=== PATIENT | female | born 1960 | race Caucasian/White ===

== ENCOUNTER 2022-02-16 08:37 | Inpatient (IN) ==
[2022-02-16] MEDS ORDERED: Lidocaine -MPF 4% 5 ML AMPUL ONE (08:52)
[2022-02-16] MEDS ORDERED: Lidocaine -MPF 2% 2 ML VIAL ONE (08:52)
[2022-02-16] MEDS ORDERED: *HR* Propofol 200 MG/20 ML VIAL IVP ONE (08:52)
[2022-02-16] MEDS ORDERED: *HR* Rocuronium Bromide 50 MG/5 ML VIAL ONE ×2 (08:52→12:34)
[2022-02-16] MEDS ORDERED: Ondansetron 4 MG/2 ML VIAL ONE (08:52)
[2022-02-16] MEDS ORDERED: *HR* FentaNYL (PF) 100 MCG/2 ML VIAL ONE (08:53)
[2022-02-16] MEDS ORDERED: CeFAZolin Syr 2,000MG/20 ML 2,000 MG/20 ML SYRINGE IVPB ONE (08:54)
[2022-02-16] MEDS ORDERED: Ringers Solution, Lactated 1,000 ML IVC SCH (09:00)
[2022-02-16] MEDS ORDERED: *HR* Labetalol 20 MG/4 ML SYRINGE IVP PRN (09:10)
[2022-02-16] MEDS ORDERED: Promethazine 6.25 MG in Water for inj. (sterile) 20 ML IVPB PRN (09:10)
[2022-02-16] MEDS ORDERED: Ipratropium Neb 0.5 MG NEBULIZER IH PRN (09:10)
[2022-02-16] MEDS ORDERED: Famotidine 20 MG/2 ML VIAL IVP ONE (09:10)
[2022-02-16] MEDS ORDERED: *HR* OxyCODONE Immed Rel 5 MG TABLET PO PRN (09:10)
[2022-02-16] MEDS ORDERED: Ondansetron 4 MG/2 ML VIAL IVP PRN ×2 (09:10→17:04)
[2022-02-16] MEDS ORDERED: Albuterol 2.5 MG/3 ML NEBULIZER IH PRN (09:10)
[2022-02-16] MEDS ORDERED: *HR* HYDROmorphone PF 0.5 MG/0.5 ML SYRINGE IVP PRN (09:10)
[2022-02-16] MEDS ORDERED: Pregabalin 75 MG CAPSULE PO ONE (09:17)
[2022-02-16] MEDS ORDERED: tiZANidine 4 MG TABLET PO ONE (09:17)
[2022-02-16] MEDS ORDERED: Celecoxib 200 MG CAPSULE PO ONE (09:17)
[2022-02-16] MEDS ORDERED: Ketorolac 30 MG/ML VIAL IVP PRN (09:37)
[2022-02-16] MEDS ORDERED: Ipratropium/Albuterol Neb 3 ML IH ONE (09:39)
[2022-02-16] MEDS ORDERED: *HR* Midazolam HCl 2 MG/2 ML VIAL ONE (11:32)
[2022-02-16] MEDS ORDERED: EPHEDrine 50 MG/ML VIAL ONE (12:03)
[2022-02-16] MEDS ORDERED: *HR* HYDROMORPHONE 2 MG/ML VIAL ONE (12:24)
[2022-02-16] MEDS ORDERED: Sugammadex Sodium 200 MG/2 ML VIAL IV ONE (12:54)
[2022-02-16] MEDS ORDERED: Naloxone 0.4 MG/ML INJ IVP PRN (17:04)
[2022-02-16] MEDS: Gabapentin 300 MG CAPSULE PO SCH ×2 (17:12→20:45)
[2022-02-16] MEDS: Ipratropium/Albuterol Neb 3 ML IH SCH ×3 (17:18→23:51)
[2022-02-16] MEDS: 0.9 % Sodium Chloride 1,000 ML IVC SCH (17:28)
[2022-02-16] MEDS: Famotidine 20 MG TABLET PO SCH (20:45)
[2022-02-16] MEDS: Sennosides/Docusate Sodium TABLET PO SCH (20:45)
[2022-02-16] MEDS: *HR* HYDROcodone/Acet 5/325 mg TABLET PO PRN (20:46)
[2022-02-16] MEDS: *HR* Heparin 5,000 UNIT/ML VIAL SQ SCH (20:46)
[2022-02-16] MEDS: Celecoxib 200 MG CAPSULE PO SCH (20:46)
[2022-02-17] MEDS: Ipratropium/Albuterol Neb 3 ML IH SCH ×5 (03:49→20:26)
[2022-02-17] MEDS: *HR* Heparin 5,000 UNIT/ML VIAL SQ SCH ×3 (05:26→20:00)
[2022-02-17] MEDS: 0.9 % Sodium Chloride 1,000 ML IVC SCH (05:28)
[2022-02-17 06:08] LABS: Hematocrit 37.6 % (35.3-44.9); Hemoglobin 11.9 g/dL (11.5-15.4); Immature Platelets 1.7 % (1.1-6.1); Mean Corpuscular HGB Conc 31.6 g/dL (31.6-35.5); Mean Corpuscular Hemoglobin 30.7 pg (28.0-33.3); Mean Corpuscular Volume 97.2 fL (83.0-100.0); Mean Platelet Volume 9.2 fL (9.4-12.4); Red Blood Count 3.87 M/mcL (3.82-4.97); Red Cell Distribution Width 12.5 % (11.5-14.5); White Blood Count 6.6 K/mcL (4.3-11.1)
[2022-02-17 06:26] LABS: BUN/Creatinine Ratio 28 (6-26); Blood Urea Nitrogen 19 mg/dL (8-23); Calcium 8.2 mg/dL (8.6-10.3); Carbon Dioxide 30 mEq/L (23-29); Chloride 105 mEq/L (98-107); Glucose 111 mg/dL (70-105); Osmolality,Calculated 291 (280-300); Potassium 4.6 mEq/L (3.5-5.1); Sodium 139 mEq/L (136-145); eGFR For African Americans > 60 (> 60); eGFR For Non-African Americans > 60 (> 60)
[2022-02-17] MEDS: Gabapentin 300 MG CAPSULE PO SCH ×3 (07:57→19:59)
[2022-02-17] MEDS: Sennosides/Docusate Sodium TABLET PO SCH ×2 (07:57→20:00)
[2022-02-17] MEDS: Loratadine 10 MG TABLET PO SCH (07:58)
[2022-02-17] MEDS: Famotidine 20 MG TABLET PO SCH ×2 (07:58→20:00)
[2022-02-17] MEDS: Celecoxib 200 MG CAPSULE PO SCH ×2 (07:58→20:00)
[2022-02-17] MEDS: Lactobacillus 1 EACH CAP.SPRINK PO SCH (07:58)
[2022-02-17] MEDS ORDERED: BIOTIN 10 MG PO SCH (09:00)
[2022-02-17] MEDS: Nicotine 21 MG PATCH.TD24 TD SCH (11:12)
[2022-02-17] MEDS: *HR* HYDROcodone/Acet 5/325 mg TABLET PO PRN ×3 (11:13→19:59)
[2022-02-18] MEDS: Ipratropium/Albuterol Neb 3 ML IH SCH ×7 (00:03→23:23)
[2022-02-18] MEDS: *HR* HYDROcodone/Acet 5/325 mg TABLET PO PRN ×4 (03:35→19:50)
[2022-02-18] MEDS: *HR* Heparin 5,000 UNIT/ML VIAL SQ SCH ×3 (06:24→19:50)
[2022-02-18] MEDS: Nicotine 21 MG PATCH.TD24 TD SCH (08:57)
[2022-02-18] MEDS: Lactobacillus 1 EACH CAP.SPRINK PO SCH (08:58)
[2022-02-18] MEDS: Gabapentin 300 MG CAPSULE PO SCH ×3 (08:59→19:49)
[2022-02-18] MEDS: Loratadine 10 MG TABLET PO SCH (08:59)
[2022-02-18] MEDS: Famotidine 20 MG TABLET PO SCH ×2 (08:59→19:49)
[2022-02-18] MEDS: Celecoxib 200 MG CAPSULE PO SCH ×2 (08:59→19:49)
[2022-02-18] MEDS: Sennosides/Docusate Sodium TABLET PO SCH ×2 (08:59→19:49)
[2022-02-18] MEDS: Furosemide 20 MG/2 ML VIAL IVP SCH (17:02)
[2022-02-18] MEDS ORDERED: Saline Nasal Spray 44 ML BOTTLE NS PRN (19:51)
[2022-02-19] MEDS: *HR* HYDROcodone/Acet 5/325 mg TABLET PO PRN ×6 (00:26→20:56)
[2022-02-19] MEDS: Ipratropium/Albuterol Neb 3 ML IH SCH ×6 (03:59→23:43)
[2022-02-19] MEDS: *HR* Heparin 5,000 UNIT/ML VIAL SQ SCH ×3 (04:39→20:57)
[2022-02-19 06:26] LABS: BUN/Creatinine Ratio 29 (6-26); Blood Urea Nitrogen 18 mg/dL (8-23); Calcium 8.4 mg/dL (8.6-10.3); Carbon Dioxide 31 mEq/L (23-29); Chloride 101 mEq/L (98-107); Glucose 115 mg/dL (70-105); Magnesium 1.9 mg/dL (1.6-2.6); Osmolality,Calculated 285 (280-300); Potassium 4.2 mEq/L (3.5-5.1); Sodium 136 mEq/L (136-145); eGFR For African Americans > 60 (> 60); eGFR For Non-African Americans > 60 (> 60)
[2022-02-19] MEDS: Sennosides/Docusate Sodium TABLET PO SCH ×2 (08:20→20:57)
[2022-02-19] MEDS: Nicotine 21 MG PATCH.TD24 TD SCH (08:20)
[2022-02-19] MEDS: Gabapentin 300 MG CAPSULE PO SCH ×3 (08:20→20:57)
[2022-02-19] MEDS: Loratadine 10 MG TABLET PO SCH (08:20)
[2022-02-19] MEDS: Celecoxib 200 MG CAPSULE PO SCH ×2 (08:20→20:57)
[2022-02-19] MEDS: Famotidine 20 MG TABLET PO SCH ×2 (08:20→20:57)
[2022-02-19] MEDS: Lactobacillus 1 EACH CAP.SPRINK PO SCH (08:20)
[2022-02-19] MEDS: Furosemide 20 MG/2 ML VIAL IVP SCH (08:21)
[2022-02-20] MEDS: *HR* HYDROcodone/Acet 5/325 mg TABLET PO PRN ×5 (02:28→20:21)
[2022-02-20] MEDS: Ipratropium/Albuterol Neb 3 ML IH SCH ×6 (04:14→23:38)
[2022-02-20] MEDS: *HR* Heparin 5,000 UNIT/ML VIAL SQ SCH ×3 (04:38→20:13)
[2022-02-20] MEDS: Sennosides/Docusate Sodium TABLET PO SCH ×2 (07:55→20:12)
[2022-02-20] MEDS: Lactobacillus 1 EACH CAP.SPRINK PO SCH (07:55)
[2022-02-20] MEDS: Nicotine 21 MG PATCH.TD24 TD SCH (07:55)
[2022-02-20] MEDS: Celecoxib 200 MG CAPSULE PO SCH ×2 (07:56→20:12)
[2022-02-20] MEDS: Gabapentin 300 MG CAPSULE PO SCH ×3 (07:56→20:12)
[2022-02-20] MEDS: Furosemide 20 MG/2 ML VIAL IVP SCH (07:56)
[2022-02-20] MEDS: Famotidine 20 MG TABLET PO SCH ×2 (07:56→20:12)
[2022-02-20] MEDS: Loratadine 10 MG TABLET PO SCH (07:56)
[2022-02-20] MEDS ORDERED: acetaZOLAMIDE 500 MG in Water for inj. (sterile) 5 ML IVP ONE (08:29)
[2022-02-21 00:59] LABS: Hematocrit 35.7 % (35.3-44.9); Hemoglobin 11.7 g/dL (11.5-15.4); Mean Corpuscular HGB Conc 32.8 g/dL (31.6-35.5); Mean Corpuscular Hemoglobin 31.4 pg (28.0-33.3); Mean Corpuscular Volume 95.7 fL (83.0-100.0); Mean Platelet Volume 8.8 fL (9.4-12.4); Platelet Count 154 K/mcL (140-400); Red Blood Count 3.73 M/mcL (3.82-4.97); Red Cell Distribution Width 12.8 % (11.5-14.5); White Blood Count 5.4 K/mcL (4.3-11.1)
[2022-02-21 01:21] LABS: BUN/Creatinine Ratio 33 (6-26); Blood Urea Nitrogen 22 mg/dL (8-23); Calcium 8.5 mg/dL (8.6-10.3); Carbon Dioxide 26 mEq/L (23-29); Chloride 101 mEq/L (98-107); Glucose 128 mg/dL (70-105); Magnesium 1.9 mg/dL (1.6-2.6); Osmolality,Calculated 285 (280-300); Potassium 4.1 mEq/L (3.5-5.1); Sodium 135 mEq/L (136-145); eGFR For African Americans > 60 (> 60); eGFR For Non-African Americans > 60 (> 60)
[2022-02-21] MEDS: *HR* HYDROcodone/Acet 5/325 mg TABLET PO PRN (02:52)
[2022-02-21] MEDS: Ipratropium/Albuterol Neb 3 ML IH SCH ×6 (04:04→23:56)
[2022-02-21] MEDS: *HR* Heparin 5,000 UNIT/ML VIAL SQ SCH ×3 (05:41→21:01)
[2022-02-21] MEDS: *HR* HYDROcodone/Acet 7.5/325 mg TABLET PO PRN ×4 (08:54→21:01)
[2022-02-21] MEDS: Loratadine 10 MG TABLET PO SCH (08:56)
[2022-02-21] MEDS: Gabapentin 300 MG CAPSULE PO SCH ×3 (08:56→20:06)
[2022-02-21] MEDS: Sennosides/Docusate Sodium TABLET PO SCH ×2 (08:56→20:06)
[2022-02-21] MEDS: Famotidine 20 MG TABLET PO SCH ×2 (08:56→20:06)
[2022-02-21] MEDS: Lactobacillus 1 EACH CAP.SPRINK PO SCH (08:56)
[2022-02-21] MEDS: Celecoxib 200 MG CAPSULE PO SCH ×2 (08:57→20:06)
[2022-02-21] MEDS: Nicotine 21 MG PATCH.TD24 TD SCH (08:58)
[2022-02-22 01:33] LABS: Hematocrit 34.9 % (35.3-44.9); Hemoglobin 11.6 g/dL (11.5-15.4); Mean Corpuscular HGB Conc 33.2 g/dL (31.6-35.5); Mean Corpuscular Hemoglobin 31.7 pg (28.0-33.3); Mean Corpuscular Volume 95.4 fL (83.0-100.0); Mean Platelet Volume 8.8 fL (9.4-12.4); Platelet Count 164 K/mcL (140-400); Red Blood Count 3.66 M/mcL (3.82-4.97); Red Cell Distribution Width 12.8 % (11.5-14.5); White Blood Count 4.3 K/mcL (4.3-11.1)
[2022-02-22 01:42] LABS: BUN/Creatinine Ratio 30 (6-26); Blood Urea Nitrogen 18 mg/dL (8-23); Calcium 8.4 mg/dL (8.6-10.3); Carbon Dioxide 25 mEq/L (23-29); Chloride 102 mEq/L (98-107); Glucose 119 mg/dL (70-105); Magnesium 1.8 mg/dL (1.6-2.6); Osmolality,Calculated 287 (280-300); Potassium 3.9 mEq/L (3.5-5.1); Sodium 137 mEq/L (136-145); eGFR For African Americans > 60 (> 60); eGFR For Non-African Americans > 60 (> 60)
[2022-02-22] MEDS: Ipratropium/Albuterol Neb 3 ML IH SCH ×5 (03:46→20:39)
[2022-02-22] MEDS: *HR* HYDROcodone/Acet 7.5/325 mg TABLET PO PRN ×5 (04:01→21:20)
[2022-02-22] MEDS: *HR* Heparin 5,000 UNIT/ML VIAL SQ SCH ×3 (06:11→21:21)
[2022-02-22] MEDS: Celecoxib 200 MG CAPSULE PO SCH ×2 (07:53→21:20)
[2022-02-22] MEDS: Gabapentin 300 MG CAPSULE PO SCH ×3 (07:53→21:19)
[2022-02-22] MEDS: Sennosides/Docusate Sodium TABLET PO SCH ×2 (07:53→21:20)
[2022-02-22] MEDS: Loratadine 10 MG TABLET PO SCH (07:53)
[2022-02-22] MEDS: Famotidine 20 MG TABLET PO SCH ×2 (07:53→21:19)
[2022-02-22] MEDS: Lactobacillus 1 EACH CAP.SPRINK PO SCH (07:53)
[2022-02-22] MEDS: Nicotine 21 MG PATCH.TD24 TD SCH (07:54)
[2022-02-23] MEDS: Ipratropium/Albuterol Neb 3 ML IH SCH ×7 (00:01→23:42)
[2022-02-23] MEDS: *HR* Heparin 5,000 UNIT/ML VIAL SQ SCH ×2 (06:20→14:12)
[2022-02-23] MEDS: Nicotine 21 MG PATCH.TD24 TD SCH (08:32)
[2022-02-23] MEDS: Sennosides/Docusate Sodium TABLET PO SCH ×2 (08:36→19:59)
[2022-02-23] MEDS: *HR* HYDROcodone/Acet 7.5/325 mg TABLET PO PRN ×3 (08:36→19:59)
[2022-02-23] MEDS: Gabapentin 300 MG CAPSULE PO SCH ×3 (08:36→19:59)
[2022-02-23] MEDS: Lactobacillus 1 EACH CAP.SPRINK PO SCH (08:37)
[2022-02-23] MEDS: Loratadine 10 MG TABLET PO SCH (08:37)
[2022-02-23] MEDS: Famotidine 20 MG TABLET PO SCH ×2 (08:37→19:59)
[2022-02-23] MEDS: Celecoxib 200 MG CAPSULE PO SCH ×2 (08:38→19:59)
[2022-02-24] MEDS: *HR* HYDROcodone/Acet 7.5/325 mg TABLET PO PRN ×3 (00:31→21:37)
[2022-02-24] MEDS: *HR* Heparin 5,000 UNIT/ML VIAL SQ SCH ×4 (00:59→21:37)
[2022-02-24] MEDS: Ipratropium/Albuterol Neb 3 ML IH SCH ×6 (04:13→23:42)
[2022-02-24] MEDS: Nicotine 21 MG PATCH.TD24 TD SCH (08:57)
[2022-02-24] MEDS: Lactobacillus 1 EACH CAP.SPRINK PO SCH (08:59)
[2022-02-24] MEDS: Sennosides/Docusate Sodium TABLET PO SCH ×2 (08:59→21:37)
[2022-02-24] MEDS: Gabapentin 300 MG CAPSULE PO SCH ×3 (08:59→21:36)
[2022-02-24] MEDS: Celecoxib 200 MG CAPSULE PO SCH ×2 (09:00→21:36)
[2022-02-24] MEDS: Loratadine 10 MG TABLET PO SCH (09:00)
[2022-02-24] MEDS: Famotidine 20 MG TABLET PO SCH ×2 (09:00→21:37)
[2022-02-24] MEDS ORDERED: Milk and Molasses Enema 200 ML RC ONE (09:19)
[2022-02-25 02:16] LABS: Hematocrit 34.3 % (35.3-44.9); Hemoglobin 10.9 g/dL (11.5-15.4); Mean Corpuscular HGB Conc 31.8 g/dL (31.6-35.5); Mean Corpuscular Hemoglobin 30.1 pg (28.0-33.3); Mean Corpuscular Volume 94.8 fL (83.0-100.0); Mean Platelet Volume 8.8 fL (9.4-12.4); Platelet Count 221 K/mcL (140-400); Red Blood Count 3.62 M/mcL (3.82-4.97); Red Cell Distribution Width 12.9 % (11.5-14.5); White Blood Count 5.8 K/mcL (4.3-11.1)
[2022-02-25 02:33] LABS: BUN/Creatinine Ratio 31 (6-26); Blood Urea Nitrogen 19 mg/dL (8-23); Calcium 8.6 mg/dL (8.6-10.3); Carbon Dioxide 28 mEq/L (23-29); Chloride 99 mEq/L (98-107); Glucose 133 mg/dL (70-105); Magnesium 1.8 mg/dL (1.6-2.6); Osmolality,Calculated 284 (280-300); Potassium 4.1 mEq/L (3.5-5.1); Sodium 135 mEq/L (136-145); eGFR For African Americans > 60 (> 60); eGFR For Non-African Americans > 60 (> 60)
[2022-02-25] MEDS: Ipratropium/Albuterol Neb 3 ML IH SCH ×6 (04:35→23:38)
[2022-02-25] MEDS: *HR* Heparin 5,000 UNIT/ML VIAL SQ SCH ×3 (05:15→20:49)
[2022-02-25] MEDS: Sennosides/Docusate Sodium TABLET PO SCH ×2 (08:46→20:49)
[2022-02-25] MEDS: Famotidine 20 MG TABLET PO SCH ×2 (08:47→20:49)
[2022-02-25] MEDS: Lactobacillus 1 EACH CAP.SPRINK PO SCH (08:48)
[2022-02-25] MEDS: Celecoxib 200 MG CAPSULE PO SCH ×2 (08:48→20:48)
[2022-02-25] MEDS: Gabapentin 300 MG CAPSULE PO SCH ×3 (08:48→20:49)
[2022-02-25] MEDS: Loratadine 10 MG TABLET PO SCH (08:48)
[2022-02-25] MEDS: Nicotine 21 MG PATCH.TD24 TD SCH (08:49)
[2022-02-25] MEDS: *HR* HYDROcodone/Acet 7.5/325 mg TABLET PO PRN ×2 (14:33→20:48)
[2022-02-26] MEDS: Ipratropium/Albuterol Neb 3 ML IH SCH ×5 (03:57→20:23)
[2022-02-26] MEDS: *HR* Heparin 5,000 UNIT/ML VIAL SQ SCH ×3 (05:49→20:47)
[2022-02-26] MEDS: Lactobacillus 1 EACH CAP.SPRINK PO SCH (08:41)
[2022-02-26] MEDS: Famotidine 20 MG TABLET PO SCH ×2 (08:41→20:45)
[2022-02-26] MEDS: Loratadine 10 MG TABLET PO SCH (08:41)
[2022-02-26] MEDS: Gabapentin 300 MG CAPSULE PO SCH ×3 (08:48→20:45)
[2022-02-26] MEDS: Nicotine 21 MG PATCH.TD24 TD SCH (08:49)
[2022-02-26] MEDS: Sennosides/Docusate Sodium TABLET PO SCH ×2 (08:49→20:46)
[2022-02-26] MEDS: Celecoxib 200 MG CAPSULE PO SCH ×2 (08:49→20:45)
[2022-02-26] MEDS: *HR* HYDROcodone/Acet 7.5/325 mg TABLET PO PRN (20:51)
[2022-02-27] MEDS: Ipratropium/Albuterol Neb 3 ML IH SCH ×4 (00:35→11:21)
[2022-02-27] MEDS: *HR* Heparin 5,000 UNIT/ML VIAL SQ SCH (06:27)
[2022-02-27] MEDS: Lactobacillus 1 EACH CAP.SPRINK PO SCH (08:35)
[2022-02-27] MEDS: Celecoxib 200 MG CAPSULE PO SCH (08:35)
[2022-02-27] MEDS: Famotidine 20 MG TABLET PO SCH (08:35)
[2022-02-27] MEDS: Loratadine 10 MG TABLET PO SCH (08:35)
[2022-02-27] MEDS: Sennosides/Docusate Sodium TABLET PO SCH (08:35)
[2022-02-27] MEDS: Gabapentin 300 MG CAPSULE PO SCH (08:35)
[2022-02-27] MEDS: Nicotine 21 MG PATCH.TD24 TD SCH (08:36)
[2022-02-27] MEDS: *HR* HYDROcodone/Acet 7.5/325 mg TABLET PO PRN (11:04)
[2022-02-27 11:12] VITALS: TEMP 99; O2SAT 93
[2022-02-27 11:14] VITALS: BP 107/52
[2022-02-27 12:54] VITALS: PULSE 87
== END 2022-02-27 13:30 | disposition home or self-care (01) | DRG 164 ==
LOC: SAMDAY 08:37 → 2NNU 16:55
PROVIDERS: ADMIT Thoracic Surgery (Cardiothoracic Vascular Surgery); ATTEND Thoracic Surgery (Cardiothoracic Vascular Surgery)